=== PATIENT | male | born 2005 | race Caucasian/White ===

== ENCOUNTER 2023-10-24 18:19 | Inpatient (IN) | payer OTHER, SELFPAY ==
[2023-10-24 18:20] VITALS: BP 142/89; PULSE 75; RESP 14; TEMP 36.8; O2SAT 97; BMI 22.6
--- NOTE | 2023-10-24 19:07 | EKG12_ITS ---
Test Reason : Blood Pressure : / mmHG Vent. Rate : 072 BPM Atrial Rate : 072 BPM P-R Int : 128 ms QRS Dur : 092 ms QT Int : 364 ms P-R-T Axes : 017 035 023 degrees QTc Int : 398 ms Normal sinus rhythm Normal ECG Confirmed by MATTHEW TORRES MD ([id number]), editor newspaper VANESSA MCLAUGHLIN ([id number]) on 10/25/2023 2:10:36 PM Referred By: Confirmed By:MATTHEW TORRES MD
--- NOTE | 2023-10-24 19:08 | EX.ED.DYSGE1 ---
HPI History of Present Illness Chief Complaint: Hyperglycemia Narrative Narrative: 18-year-old [facility] male presents with his parents from his doctor's office with elevated blood sugars. He relates history that he has not felt well for quite some time. He endorses fatigue and tiredness, low energy. No fevers or chills. Mother states that he has polyuria and polydipsia, always thirsty. He has lost 10 pounds in the last month. They went to the primary care provider's office and his blood glucose read high. They think that he may have new onset diabetes so they sent him to the emergency department. He denies any abdominal pain, no nausea or vomiting, no diarrhea, no chest pain or shortness of breath. PFSH PFSH Medical History no medical history Home Medications ?Medication ?Instructions ?Recorded ?Last Taken ?Type NK 10/24/23 Unknown History Allergy/AdvReac Type Severity Reaction Status Date / Time No Known Allergies Allergy Verified 10/24/23 18:23 Social History Smoking Status: Never smoker ROS ROS ED ROS Narrative Constitutional: No fever, no chills. Low energy. Positive fatigue. HEENT: No sore throat. No neck pain. No loss of vision. No rhinorrhea. Cardiovascular: No chest pain. No palpitations. No pedal edema. Respiratory: No cough, no shortness of breath. Abdominal: No abdominal pain. No nausea. No vomiting. Genitourinary: No dysuria. No hematuria. Polyuria. Endocrine: Polyuria, polydipsia. Musculoskeletal: No myalgias. No arthralgias. Neurologic: No headaches. No dizziness. No lightheadedness. Skin: No rash. No change in color. Psychiatric: No depression. No anxiety. EXAM Physical Exam Narrative Exam Narrative: Afebrile. Vital signs noted. Nontoxic-appearing. HEENT: Normocephalic. Atraumatic. PERRL, EOMI. Neck soft and supple. No point tenderness or step off. Cardiovascular: Regular rate and rhythm. No murmurs, rubs, or gallops appreciated. Respiratory: No tachypnea. Lungs clear to auscultation bilaterally. Gastrointestinal: Abdomen soft, nontender, with normoactive bowel sounds. No rebound or guarding. Neurological: Awake. Alert. Nonfocal, nonlateralizing. Skin: No rash. Normal color. No pallor. Musculoskeletal: No pedal edema. Full range of motion extremities. Const Vital Signs: 10/24/23 18:20 10/24/23 19:31 10/24/23 21:00 Temperature 98.3 F Temperature Source Temporal Pulse Rate 75 74 Respiratory Rate 14 22 H Respiratory Effort Normal Respiratory Pattern Normal Blood Pressure 142/89 H 144/96 H Blood Pressure Mean 106 112 Pulse Ox 97 Oxygen Delivery Method Room Air Room Air 10/24/23 21:03 Temperature 99.4 F H Temperature Source Pulse Rate 84 Respiratory Rate 16 Respiratory Effort Respiratory Pattern Blood Pressure 144/96 H Blood Pressure Mean 112 Pulse Ox 98 Oxygen Delivery Method MDM MDM MDM Narrative Medical decision making narrative: Concern is for new onset diabetes and hyperglycemia versus diabetic ketoacidosis. His glucose monitoring shows it to be elevated at 585 on [id number] glucose here. DKA workup was still pursued. He was bolused normal saline 1 L intravenously. EKG was obtained and interpreted by myself independently as normal sinus rhythm at 72 bpm without ectopy or acute ST changes. No STEMI. I reviewed his laboratory work and he has normal white count of 9.0, hemoglobin normal at 15.8, hematocrit 43.1, platelet count 275. While sodium is low at 133, he has a glucose elevated at 586, potassium normal at 4.2, chloride 98. BUN is elevated at 22 with a creatinine of 1.15. Hemoglobin A1c is 12.8. Hence, I do feel that he probably has new onset diabetes. Acetone level is small, but now that he is in diabetic ketoacidosis as he has a normal anion gap of 12. Urinalysis is negative for infection but positive for 150 ketones, and there is glucose present. He was bolused initially 1 L of normal saline intravenously. Given his new onset diabetes, I feel he requires at least observation to lower his glucose, and be given diabetic education. Patient was discussed with the hospitalist, Dr. Sachin Sanchez. He would like the patient to receive 10 units of regular insulin, and 40 units of Lantus. Disposition is admit to the general medical floor. He is in stable condition. History & Record Review Discussion w/independent historian: Patient and Family Lab Data Attestation: I reviewed the patient's lab results. Labs: Laboratory Results - last 24 hr 10/24/23 10/24/23 10/24/23 17:17 19:08 19:34 WBC 9.0 RBC 5.36 Hgb 15.8 Hct 43.1 MCV 80.4 MCH 29.5 MCHC 36.7 H RDW Std Deviation 34.5 L RDW Coeff of Margarette 12.0 Plt Count 275 MPV 10.5 Immature Gran % (Auto) 0.300 Neut % (Auto) 66.1 Lymph % (Auto) 25.7 Colbert % (Auto) 5.5 Eos % (Auto) 1.8 Baso % (Auto) 0.6 Absolute Neuts (auto) 6.0 Absolute Lymphs (auto) 2.32 Nucleated RBC % 0 Sodium 133 L Potassium 4.2 Chloride 98 Carbon Dioxide 23.0 Anion Gap 12 BUN 22 H Creatinine 1.15 Estim Creat Clear Calc 103.60 Est GFR (MDRD) Af Amer 104 Est GFR (MDRD) Non-Af 86 BUN/Creatinine Ratio 19.1 Glucose 586 H* Hemoglobin A1c 12.8 H Calcium 9.5 Total Bilirubin 0.50 AST 23 ALT 43 Alkaline Phosphatase 210 H Total Protein 7.4 Albumin 4.1 Globulin 3.3 Albumin/Globulin Ratio 1.2 Urine Color Yellow Urine Clarity Sl. Cloudy Urine pH 5.0 Ur Specific Tate 1.010 Urine Protein Negative Urine Glucose (UA) 1000 H Urine Ketones 150 A* Urine Occult Blood Negative Urine Nitrite Negative Urine Bilirubin Negative Urine Urobilinogen Normal Ur Leukocyte Esterase Negative Urine RBC 0 SEEN Urine WBC 0 SEEN Ur Squamous Epith Cells 0 SEEN Urine Bacteria 0 SEEN Urine Mucus 0 SEEN Acetone Level SMALL H POC Glucose > 500 H* Discharge Plan Dx/Rx/DC Orders Clinical Impression: Hyperglycemia, Diabetes mellitus, new onset Disposition Disposition: Acute Care Hospital [facility]
[2023-10-24] MEDS: 0.9% Normal Saline (1000mL) 1,000 ML 999 ML IV ×2 (19:24→20:14)
[2023-10-24 19:28] LABS: Bedside Glucose > 500 mg/dL (74-106)
[2023-10-24 19:43] LABS: Bacteria 0 SEEN /hpf (None Seen); Mucous, Urine 0 SEEN /hpf (<or=2+); Red Blood Cells-Urine 0 SEEN /hpf (0-5); Squamous Epithelial Cells - UA 0 SEEN /hpf (0-5); White Blood Cells 0 SEEN /hpf (0-5)
[2023-10-24 19:45] LABS: Absolute Lymphocyte Count 2.32 X10^3/uL (0.83-4.51); Basophil# 0.05 X10^3/uL; Basophil% 0.6 % (0-1); Eosinophil# 0.16 X10^3/uL; Eosinophils% 1.8 % (0-5); Hematocrit 43.1 % (40-54); Hemoglobin 15.8 g/dL (13.0-16.5); Lymphocyte # 2.32 X10^3/ul (0.83-4.51); Lymphocyte % 25.7 % (19-41); Mean Corp Hgb Conc 36.7 g/dL (32-36); Mean Corpuscular Hgb 29.5 pg (27.0-32.0); Mean Corpuscular Volume 80.4 fL (80-94); Mean Platelet Vol. 10.5 fl (6.2-12.0); Monocyte% 5.5 % (0-10); NRBC Flagged by Analyzer 0 % (0-5); Neutrophil # 5.95 X10^3/uL (2.7-7.7); Neutrophil % 66.1 % (47-70); Platelet Count 275 K/mm3 (150-450); RBC Distribution Width SD 34.5 fl (35.1-43.9); Red Blood Count 5.36 M/mm3 (4.6-6.2)
[2023-10-24 19:46] LABS: Color, Urine Yellow (Yellow); Glucose, Dipstick 1000 mg/dl (Normal); Leukocyte Esterase-Dipstick Negative /ul (Negative); Nitrite-Dipstick Negative (Negative); Occult Blood-Urine Negative /ul (Negative); Protein-Dipstick Negative (Negative); Urine Bilirubin Dipstick Negative (Negative); Urine Clarity Sl. Cloudy (Clear); Urine Urobilinogen Normal (Normal)
[2023-10-24 20:08] LABS: Hemoglobin A1c 12.8 % (3.8-5.6)
[2023-10-24 20:11] LABS: ALB/GLOB Ratio 1.2 RATIO (0.9-2.4); AST(SGOT) 23 U/L (15-37); Alanine Aminotransfer ALT/SGPT 43 U/L (16-61); Albumin, Serum 4.1 g/dL (3.2-5.0); Alkaline Phosphatase 210 U/L (45-117); Anion Gap 12 (5-15); BUN 22 mg/dL (7-18); BUN/Creat Ratio 19.1 RATIO (10-20); Calcium,Total 9.5 mg/dL (8.5-10.1); Chloride 98 mmol/L (98-107); Creatinine, Serum 1.15 mg/dL (0.70-1.30); EST Glomerular Filtration Rate 86 mL/min (>60); Est Glom Filt Rate - Afr Amer 104 mL/min (>60); Globulin 3.3 g/dL (2.2-4.2); Glucose 586 mg/dL (74-106); Potassium 4.2 mmol/L (3.5-5.1); Protein, Total 7.4 g/dL (6.4-8.2); Sodium Level 133 mmol/L (136-145)
[2023-10-24 20:12] LABS: Ketone-Dipstick 150 mg/dl (Negative)
[2023-10-24 21:00] VITALS: BP 144/96; PULSE 74; RESP 22
--- NOTE | 2023-10-24 21:00 | HP.PCM.HOS_ITS ---
HPI - General General Date of Admission: 10/24/23 Date of Service: 10/24/23 Chief Complaint: Hyperglycemia, Polyuria, Polydipsia and Fatigue. HPI Narrative RANJAN JIMENES, is a 18 M who presents to [facility] ER complaining of hyperglycemia, polyuria, polydipsia and fatigue. Mr. Jimenes reports he has not felt well for quite some time. He endorses fatigue, tiredness and low energy for the past month along with an unintentional 10 pound weight loss. His mother also stated to the ER provider that he has polyuria and polydipsia and is always thirsty. His mother then took him to his primary care physician and his glucose read high and they decided to bring him to the emergency department for further evaluation and treatment regarding newly diagnosed diabetes. The patient denies fever, chills abdominal pain, nausea, vomiting, diarrhea, chest pain or shortness of breath. In the ER he was noted to have hyperglycemia of 586 mg/dL present on admission with a corresponding hemoglobin A1c of 12.8% confirming newly diagnosed poorly-controlled diabetes mellitus type-2; uncontrolled with hyperglycemia and he was then admitted to the general medical floor for ongoing care for stay that is expected to extend beyond 2 midnights. [facility] Medical History no medical history Home Medications ?Medication ?Instructions ?Recorded ?Last Taken ?Type NK 10/24/23 Unknown History Allergy/AdvReac Type Severity Reaction Status Date / Time No Known Allergies Allergy Verified 10/24/23 18:23 Social History Smoking Status: Never smoker ROS ROS Narrative Review of systems: General: Patient admits to low energy and severe fatigue but he denies fever or chills. HENT: Denies headache, denies stuffy nose, denies sore throat EYES: Denies changes in vision or discharge from eyes. Resp: Denies cough, denies shortness of breath Cardiac: Denies chest pain, palpitations or heart racing. GI: Denies abdominal pain, denies changes in bowel, denies nausea or vomiting : Denies changes in urination Extremity: Denies swelling Musculoskeletal: Feels somewhat generally weak and unwell but denies arthralgias or myalgias. Neuro: Patient denies headache, paresthesias or focal neurologic weakness. Heme: Denies any bleeding or bruising Skin: Denies rashes Psychiatric: No complaints voiced related uncontrolled depression or anxiety. Endocrine: Patient admits to severe polyuria, polydipsia and polyphagia with ~10# weight loss for the past month as per HPI. The rest of the 14 point ROS was negative except for positives in HPI. Vital Signs Vital Signs Vital Signs: 10/24/23 18:20 10/24/23 19:31 Temperature 98.3 F Temperature Source Temporal Pulse Rate 75 Respiratory Rate 14 Respiratory Effort Normal Respiratory Pattern Normal Blood Pressure 142/89 H Blood Pressure Mean 106 Pulse Ox 97 Oxygen Delivery Method Room Air Weight Weight: 157 lb 9.6 oz Body Mass Index (BMI) 22.6 Physical Exam Const alert, oriented x3, no apparent distress and average body habitus General Appearance: cooperative HEENT normocephalic, head/scalp atraumatic and hearing grossly normal bilaterally HEENT Narrative: Mucous membranes dry. Eyes PERRL, EOMs intact bilaterally and conjunctivae normal Neck no lymphadenopathy and supple Resp normal respiratory effort, no retractions, no use of accessory muscles and clear to auscultation bilaterally Cardio regular rate and regular rhythm GI normal to inspection, nondistended, normoactive bowel sounds, soft to palpation, non-tender and non-distended Extremity normal to inspection, full ROM and no clubbing, cyanosis or edema Skin Skin Narrative: Patient has no evidence of jaundice or rash. Neuro oriented x3, CN's II-XII intact bilaterally, moves all extremities and no focal motor deficits Sensorium / Orientation: awake, alert, oriented to person, oriented to place and oriented to time Speech: speech normal Motor Exam: strength 5/5 throughout Psych affect normal Results Medical Records Data Attestation: I reviewed the patient's medical records Lab / Micro Data Attestation: I reviewed the patient's lab results. 10/24/23 17:17 10/24/23 21:00 Labs: Laboratory Results - last 24 hr 10/24/23 17:17: WBC 9.0, RBC 5.36, Hgb 15.8, Hct 43.1, MCV 80.4, MCH 29.5, MCHC 36.7 H, RDW Std Deviation 34.5 L, RDW Coeff of Margarette 12.0, Plt Count 275, MPV 10.5, Immature Gran % (Auto) 0.300, Neut % (Auto) 66.1, Lymph % (Auto) 25.7, Barry % (Auto) 5.5, Eos % (Auto) 1.8, Baso % (Auto) 0.6, Absolute Neuts (auto) 6.0, Absolute Lymphs (auto) 2.32, Nucleated RBC % 0, Sodium 133 L, Potassium 4.2, Chloride 98, Carbon Dioxide 23.0, Anion Gap 12, BUN 22 H, Creatinine 1.15, Estim Creat Clear Calc 103.60, Est GFR (MDRD) Af Amer 104, Est GFR (MDRD) Non-Af 86, BUN/Creatinine Ratio 19.1, Glucose 586 H*, Hemoglobin A1c 12.8 H, Calcium 9.5, Total Bilirubin 0.50, AST 23, ALT 43, Alkaline Phosphatase 210 H, Total Protein 7.4, Albumin 4.1, Globulin 3.3, Albumin/Globulin Ratio 1.2, Acetone Level SMALL H 10/24/23 19:08: POC Glucose > 500 H* 10/24/23 19:34: Urine Color Yellow, Urine Clarity Sl. Cloudy, Urine pH 5.0, Ur Specific [place] 1.010, Urine Protein Negative, Urine Glucose (UA) 1000 H, Urine Ketones 150 A*, Urine Occult Blood Negative, Urine Nitrite Negative, Urine Bilirubin Negative, Urine Urobilinogen Normal, Ur Leukocyte Esterase Negative, Urine RBC 0 SEEN, Urine WBC 0 SEEN, Ur Squamous Epith Cells 0 SEEN, Urine Bacteria 0 SEEN, Urine Mucus 0 SEEN Assessment & Plan Assessment/Plan (1) Diabetes mellitus, new onset: (2) Hyperglycemia: PLAN: Plan 1. Newly diagnosed poorly controlled diabetes mellitus type-2; uncontrolled with hyperglycemia 586 mg/dL present on admission and confirmed by hemoglobin A1c of 12.8% this admission with blood glucose dropping to 379 mg/dL after initial round of treatment - Admit to general medical floor. Give Lantus 20 units subcu once +6 units of sliding scale insulin. Give high intensity sliding scale insulin plus fingerstick blood sugars before every meal/at bedtime. Vigorously volume resuscitate and recheck serum ketone in a.m. to confirm patient not in DKA. Blood glucose now down to 292 mg/dL after second round of treatment. Finally, we will consult clinical dietitian see this patient regarding diabetic teaching as he will likely require insulin upon discharge with help appreciated in advance. 2. DVT prophylaxis - Lovenox 40 mg subcu daily. Total time: Approximately 45 minutes. Charges/Coding Visit Charges Inpatient E&M: 39626 Init Hosp L1
[2023-10-24 21:03] VITALS: BP 144/96; PULSE 84; RESP 16; TEMP 37.4; O2SAT 98
[2023-10-24 21:23] LABS: Bedside Glucose 379 mg/dL (74-106)
[2023-10-24] MEDS: Insulin Glargine-YFGN 100 UNIT/ML Pen 20 UNIT SC (21:29)
[2023-10-24] MEDS: Insulin Lispro 100 UNIT/ML INSULN.PEN 6 UNIT SC (21:31)
[2023-10-24 21:48] VITALS: BMI 22.7
[2023-10-24 22:09] LABS: Anion Gap 11 (5-15); BUN 19 mg/dL (7-18); BUN/Creat Ratio 20.3 RATIO (10-20); Chloride 106 mmol/L (98-107); Creatinine, Serum 0.94 mg/dL (0.70-1.30); EST Glomerular Filtration Rate 109 mL/min (>60); Est Glom Filt Rate - Afr Amer 131 mL/min (>60); Glucose 415 mg/dL (74-106); Potassium 4.1 mmol/L (3.5-5.1); Sodium Level 138 mmol/L (136-145)
[2023-10-24 22:32] VITALS: BP 136/73; PULSE 79; RESP 14; TEMP 37; O2SAT 98
[2023-10-24] MEDS: Lactated Ringers 1,000 ML 150 ML IV (22:43)
[2023-10-24] MEDS: Insulin Lispro 100 UNIT/ML INSULN.PEN SC (22:46)
[2023-10-25 00:29] LABS: Bedside Glucose 292 mg/dL (74-106)
[2023-10-25 01:15] LABS: Blood Gas Specimen Type VEN; O2 Delivery Device Room Air; SITE Not entered; VBG BASE EXCESS -1 mmol/L (-1.0-3.5); VBG Bicarbonate 24 mmol/L (22-26); VBG PO2 73 mmHg (25-40); VBG SO2 94 % (50-70); VBG TCO2 25 mmol/L (23-33); VBG pCO2 41.8 mmHg (41-51); VBG pH 7.37 (7.32-7.42)
[2023-10-25 04:07] VITALS: BP 127/75; PULSE 65; RESP 14; TEMP 36.5; O2SAT 99
[2023-10-25] MEDS: Acetaminophen 325 MG Tablet 650 MG PO (04:18)
[2023-10-25] MEDS: Lactated Ringers 1,000 ML 150 ML IV (05:00)
[2023-10-25 06:00] VITALS: BMI 22.6
[2023-10-25 06:42] LABS: Absolute Lymphocyte Count 1.74 X10^3/uL (0.83-4.51); Absolute Neutrophil Count 5.1 X10^3/uL (2.0-7.7); Basophil# 0.02 X10^3/uL; Basophil% 0.3 % (0-1); Eosinophils% 1.3 % (0-5); Hematocrit 38.8 % (40-54); Lymphocyte # 1.74 X10^3/ul (0.83-4.51); Mean Corp Hgb Conc 36.1 g/dL (32-36); Mean Corpuscular Hgb 29.4 pg (27.0-32.0); Mean Corpuscular Volume 81.3 fL (80-94); Mean Platelet Vol. 10.2 fl (6.2-12.0); Monocyte# 0.59 X10^3/uL; Monocyte% 7.8 % (0-10); NRBC Flagged by Analyzer 0 % (0-5); Neutrophil # 5.08 X10^3/uL (2.7-7.7); Neutrophil % 67.3 % (47-70); Platelet Count 208 K/mm3 (150-450); RBC Distribution Width CV 11.9 % (11.6-14.6); RBC Distribution Width SD 34.8 fl (35.1-43.9); Red Blood Count 4.77 M/mm3 (4.6-6.2); White Blood Count 7.6 K/mm3 (4.4-11.0)
[2023-10-25] MEDS: Insulin Lispro 100 UNIT/ML INSULN.PEN SC ×2 (06:53→11:44)
[2023-10-25 07:18] LABS: Bedside Glucose 202 mg/dL (74-106)
[2023-10-25 07:24] LABS: ALB/GLOB Ratio 1.2 RATIO (0.9-2.4); AST(SGOT) 19 U/L (15-37); Alanine Aminotransfer ALT/SGPT 32 U/L (16-61); Alkaline Phosphatase 99 U/L (45-117); Anion Gap 5 (5-15); BUN 14 mg/dL (7-18); BUN/Creat Ratio 18.1 RATIO (10-20); Calcium,Total 8.3 mg/dL (8.5-10.1); Chloride 110 mmol/L (98-107); Creatinine, Serum 0.77 mg/dL (0.70-1.30); EST Glomerular Filtration Rate 135 mL/min (>60); Est Glom Filt Rate - Afr Amer 164 mL/min (>60); Estimated Creatinine Clearance 155.19 ml/min; Globulin 2.5 g/dL (2.2-4.2); Glucose 211 mg/dL (74-106); Magnesium 1.8 mg/dL (1.6-2.6); Phosphorus 2.6 mg/dL (2.5-4.9); Potassium 3.5 mmol/L (3.5-5.1); Protein, Total 5.5 g/dL (6.4-8.2); Sodium Level 140 mmol/L (136-145); Thyroid Stim Hormone (TSH) 1.82 uIU/mL (0.358-3.74)
[2023-10-25 09:53] VITALS: BP 129/73; PULSE 78; RESP 16; TEMP 36.7; O2SAT 98
[2023-10-25] MEDS: Enoxaparin 40 MG/0.4 ML Syringe SC (09:57)
--- NOTE | 2023-10-25 10:40 | CASEMGMT ---
BEATRIZ DE LEON Face to Face with patient for initial transition planning/care coordination assessment. BEATRIZ DE LEON introduced self and role at [facility]. Patient lying in bed, alert and oriented, mother at bedside. Patient willing to participate in assessment and is able to answer all questions appropriately. Care providers, pharmacy, and demographics verified. PCP: Chaka Bonner Specialists: none Preferred Pharmacy: [facility] [place]; [facility] at discharge. Insurance: [facility] Prescription Benefit: none Living Will/HPOA: none LNOK: mother, father Living Arrangements: Patient lives with parents in a 2 story home. Patient is independent and able to ambulate stairs. Transportation: driving service DME/HHC: Patient denies DME, CM to assist with glucometer script at discharge. Patient wishes to discharge home. BEATRIZ DE LEON updated nursing to complete new diabetic teaching with patient and mother. Patient states he has no further needs or concerns at this time. CM to follow for discharge planning needs that may arise. Disposition Plan: Patient to discharge home with family support and follow-up plans in place. Jessica DANIEL, RN, CM
[2023-10-25 12:11] LABS: Bedside Glucose 230 mg/dL (74-106)
--- NOTE | 2023-10-25 12:45 | CASEMGMT ---
Patient does not have a Healthcare Power of Child Support Case Officer or Healthcare Living Will. Patient is not interested in documents. Maira YEPEZ
--- NOTE | 2023-10-25 13:04 | DS.PCM_ITS ---
Providers Date of Admission: 10/24/23 Date of Discharge: 10/25/23 Primary Care Physician: No Primary Care Phys Reason For Visit: NEWLY DIAGNOSED DIABETES MELLITUS TYPE 2; POORLY Diagnosis Discharge Diagnosis (1) Diabetes mellitus, new onset: Status: Acute Code(s): E11.9 - Type 2 diabetes mellitus without complications (2) Hyperglycemia: Status: Acute Code(s): R73.9 - Hyperglycemia, unspecified Medications at Discharge Home Medications insulin glargine 100 unit/mL (3 mL) subcutaneous pen (Lantus Solostar U-100 Insulin) 15 unit (0.15 mL) subcut BID #30 mL 10/25/23 pen needle, diabetic 32 gauge x 5/32 (Pen Needle) #100 ea 10/25/23 Hospital Course Summary of Care Provided Minutes Spent on Discharge: 35 Hospital Course: Patient is a 18-year-old gentleman admitted with hyperglycemia. Patient was diagnosed with new onset diabetes mellitus type 2. Admitted to a monitored bed managed with IV fluid as well as insulin. Patient blood glucose levels did improve was discharged home on Lantus. A follow-up appointment was set up with Dr. Ceja with endocrinology as Physical Exam Narrative GENERAL: cooperative HEENT: Atraumatic; normocephalic EYES; Anicteric, Normal Conjunctiva NECK; supple, normal thyroid, RESPIRATORY: Diminished to auscultation CARDIOVASCULAR: Regular S1 S2, GI: soft, normoactive bowel sounds, : No Renal angle tenderness; EXTREMITIES: No edema, no clubbing, MUSCULOSKELETAL: no muscle wasting NEURO: Awake; no lateralizing signs. SKIN: No Rash PSYCH; Flat affect Weight / BMI Weight Weight: 71.7 kg Body Mass Index (BMI) 22.6 ABG / Lab / Microbiology Data 10/25/23 06:07 10/25/23 06:07 Laboratory: Laboratory Results - last 24 hr 10/24/23 17:17: WBC 9.0, RBC 5.36, Hgb 15.8, Hct 43.1, MCV 80.4, MCH 29.5, MCHC 36.7 H, RDW Std Deviation 34.5 L, RDW Coeff of Margarette 12.0, Plt Count 275, MPV 10.5, Immature Gran % (Auto) 0.300, Neut % (Auto) 66.1, Lymph % (Auto) 25.7, Forest % (Auto) 5.5, Eos % (Auto) 1.8, Baso % (Auto) 0.6, Absolute Neuts (auto) 6.0, Absolute Lymphs (auto) 2.32, Nucleated RBC % 0, Sodium 133 L, Potassium 4.2, Chloride 98, Carbon Dioxide 23.0, Anion Gap 12, BUN 22 H, Creatinine 1.15, Estim Creat Clear Calc 103.60, Est GFR (MDRD) Af Amer 104, Est GFR (MDRD) Non-Af 86, BUN/Creatinine Ratio 19.1, Glucose 586 H*, Hemoglobin A1c 12.8 H, Calcium 9.5, Total Bilirubin 0.50, AST 23, ALT 43, Alkaline Phosphatase 210 H, Total Protein 7.4, Albumin 4.1, Globulin 3.3, Albumin/Globulin Ratio 1.2, Acetone Level SMALL H 10/24/23 19:08: POC Glucose > 500 H* 10/24/23 19:34: Urine Color Yellow, Urine Clarity Sl. Cloudy, Urine pH 5.0, Ur Specific Tyler 1.010, Urine Protein Negative, Urine Glucose (UA) 1000 H, Urine Ketones 150 A*, Urine Occult Blood Negative, Urine Nitrite Negative, Urine Bilirubin Negative, Urine Urobilinogen Normal, Ur Leukocyte Esterase Negative, Urine RBC 0 SEEN, Urine WBC 0 SEEN, Ur Squamous Epith Cells 0 SEEN, Urine Bacteria 0 SEEN, Urine Mucus 0 SEEN 10/24/23 21:00: Sodium 138, Potassium 4.1, Chloride 106, Carbon Dioxide 21.0, Anion Gap 11, BUN 19 H, Creatinine 0.94, Estim Creat Clear Calc 127.30, Est GFR (MDRD) Af Amer 131, Est GFR (MDRD) Non-Af 109, BUN/Creatinine Ratio 20.3 H, G lucose 415 H, Calcium 8.0 L 10/24/23 21:02: POC Glucose 379 H 10/24/23 22:36: POC Glucose 292 H 10/25/23 06:07: WBC 7.6, RBC 4.77, Hgb 14.0, Hct 38.8 L, MCV 81.3, MCH 29.4, M CHC 36.1 H, RDW Std Deviation 34.8 L, RDW Coeff of Margarette 11.9, Plt Count 208, MPV 10.2, Immature Gran % (Auto) 0.300, Neut % (Auto) 67.3, Lymph % (Auto) 23.0, Forest % (Auto) 7.8, Eos % (Auto) 1.3, Baso % (Auto) 0.3, Absolute Neuts (auto) 5.1, Absolute Lymphs (auto) 1.74, Nucleated RBC % 0, Sodium 140, Potassium 3.5, Chloride 110 H, Carbon Dioxide 25.0, Anion Gap 5, BUN 14, Creatinine 0.77, Estim Creat Clear Calc 155.19, Est GFR (MDRD) Af Amer 164, Est GFR (MDRD) Non-Af 135, BUN/Creatinine Ratio 18.1, Glucose 211 H, Calcium 8.3 L, Phosphorus 2.6, Magnesium 1.8, Total Bilirubin 0.60, AST 19, ALT 32, Alkaline Phosphatase 99, T otal Protein 5.5 L, Albumin 3.0 L, Globulin 2.5, Albumin/Globulin Ratio 1.2, TSH 1.82, Acetone Level NEGATIVE 10/25/23 06:52: POC Glucose 202 H 10/25/23 11:38: POC Glucose 230 H ABG: ABG 10/25/23 01:11 Specimen Type ITZEL Sample Site Not entered VBG pH 7.37 VBG pO2 73 H VBG HCO3 24 VBG Total CO2 25 VBG O2 Sat (Calc) 94 H VBG Base Excess -1 POC Mix VBG pCO2 Pt Tmp 41.8 O2 Delivery Device Room Air D/C Instructions Discharge Diet: 1800 Calorie Control Diet Discharge Activity: Return to Normal Activity Call your doctor if you observe: Fever of 101 or Higher, Shortness of breath, Fainting spells and Chest pain Meaningful Use Info Meaningful Use Meaningful Use Diagnoses (Choose all that apply): None applicable Ischemic Stroke Statin Dosing Therapy Reference: STATIN DOSE THERAPY REFERENCE: * Patients > 75 years receive moderate or high dose statin therapy. * Patients 75 years or YOUNGER should receive HIGH intensity statin dose unless contraindicated. You will be required to document reason for non-treatment if statin daily dose does not meet guidelines. HIGH DOSE STATIN THERAPY DAILY Atorvastatin > than or = to 40 mg Rosuvastatin > than or = to 20 mg Amlodipine + Atorvastatin > than or = to 2.5/40 mg Ezetimibe + Simvastatin 10/80 mg Simvastatin 80mg Discharge Plan Admission Admit Date/Time: 10/24/23 21:11 Attending Provider: Sachin Mar Primary Care Provider: Care Physician,No Primary Consulting Providers: Sachin Sheridan Discharge Orders/Prescriptions Prescriptions: New (DME) pen needle, diabetic [Pen Needle] 32 gauge x 5/32 needle See Rx Instructions .Route Qty: 100 0RF Rx Instructions: As directed BID insulin glargine [Lantus Solostar U-100 Insulin] 100 unit/mL (3 mL) insulin pen 15 unit subcut BID Qty: 30 0RF Referrals / Follow Up: Desmond Ceja MD [Med Staff - Courtesy Staff] - Within 2 Weeks Care Physician,No Primary [Primary Care Provider] - Within 1 Week Disposition Disposition (needs filled in before D/C Order can be placed): Home, Self Care Charges/Coding Visit Charges Inpatient E&M: 48350 Disch Hosp >30min
[2023-10-25 13:08] VITALS: BP 122/78; PULSE 80; RESP 12; TEMP 36.2; O2SAT 98
--- NOTE | 2023-10-25 13:18 | CASEMGMT ---
Addendum entered by Tamia Fu 10/25/23 13:47: Pt RN updated and pt RN states that she is going to wait until after dinner to DC the pt to ensure he is educated enough in regard to using his new diabetic/ insulin supplies. Original Note: Rx for BGM and supplies signed by Dr. Mar. Rx sent to [facility]. RN CM to pt room at this time and the pt and pt family state they would like the insulin and supplies delivered to the bedside. Pt states that his father will be here soon with a payment method. Pt denies further needs at this time. TC to [facility] and they state they will deliver the insulin and supplies to the pt room.
--- NOTE | 2023-10-25 16:32 | PHA.DC_ITS ---
Pharmacy [facility] has performed discharge medication reconciliation and counseling for this patient. Patient's mother requested alcohol swabs, this [facility] called retail to see if they can add to their Rx, spoke to Tyson and swabs will be an additional $2.50. Patient's mother okay with cost. Per Tyson, will also be receiving glucometer and supplies. 1. INSULIN GLARGINE 15UNITS SC BID The patient's discharge medication list was reviewed for discrepancies and discrepancies were resolved. The patient was counseled on the following discharge medications and changes in medications for homegoing were reviewed. The Reason for Use, instructions for use, and potential side effects were reviewed for all new medications. The patient's questions regarding all of their medications were answered. The patient was able to verbally demonstrate an understanding of their discharge medications. Medications at Discharge Home Medications insulin glargine 100 unit/mL (3 mL) subcutaneous pen (Lantus Solostar U-100 Insulin) 15 unit (0.15 mL) subcut BID #30 mL 10/25/23 pen needle, diabetic 32 gauge x 32 (Pen Needle) #100 ea 10/25/23
== END 2023-10-25 15:18 | disposition home or self-care (01) | DRG 639 ==
LOC: ED 21:04 → PCU 21:20
PROVIDERS: Admitting Provider Internal Medicine; Emergency Provider Emergency Medicine; Visit Provider Internal Medicine
DX: E11.65 Type 2 diabetes mellitus with hyperglycemia (principal); Z79.4 Long term (current) use of insulin
CPT/HCPCS: 36415; 80048; 80053; 81001; 82009; 82803; 82962; 83036; 83735; 84100; 84443; 85025; 93005; 94668; 97802; 99285; J7030; J7120; A4216